=== PATIENT | male | born 1980 | race Caucasian/White ===

== ENCOUNTER 2018-06-01 09:27 | Outpatient (CLI) | payer BC ==
[2018-06-01 10:58] LABS: Hemoglobin 15.4 g/dL (14.0-18.0); Mean Corpuscular HGB CONC 34.2 g/dL (32.0-36.0); Mean Corpuscular Volume 96.4 fL (78.0-98.0); Mean Platelet Volume 8.8 fL (7.4-10.4); Platelet Count 192 thou/uL (130-400); RBC Distribution Width 12.2 % (11.5-14.5); Red Blood Cell (RBC) Count 4.68 mill/uL (4.70-6.10); White Blood Cell (WBC) Count 7.7 thou/uL (4.8-10.8)
[2018-06-01 11:23] LABS: Anion Gap 16 mmol/L (10-20); BUN (Urea Nitrogen) 14 mg/dL (8.9-20.6); Calc. Creatinine Clearance 0 mL/min (70-130); Calcium 9.6 mg/dL (7.8-10.44); Carbon Dioxide 23 mmol/L (22-29); Chloride 106 mmol/L (98-107); Estimated GFR-MDRD 77; Glucose 105 mg/dL (70-105); Potassium 3.9 mmol/L (3.5-5.1); Sodium 141 mmol/L (136-145)
== END 2018-06-01 09:28 | disposition home or self-care (01) ==
LOC: LABBT 09:27
PROVIDERS: ATTEND Neurological Surgery
DX: Z01.818 Encounter for other preprocedural examination (principal); M54.12 Radiculopathy, cervical region
CPT/HCPCS: 80048; 85027; 93005; 93010

== ENCOUNTER 2018-06-05 05:55 | Observation (INO) | payer BC ==
[2018-06-05] MEDS ORDERED: Sodium Chloride 0.9% 10 ML ONE (06:24)
[2018-06-05] MEDS ORDERED: CEFAZOLIN 2 GM/50 ML BAG ONE (07:08)
[2018-06-05] MEDS ORDERED: Fentanyl 100 MCG/2 ML VIAL ONE ×2 (07:21→09:29)
[2018-06-05] MEDS ORDERED: Midazolam HCl 2 mg/2 ml Vial ONE (07:28)
[2018-06-05] MEDS ORDERED: Albuterol Sulfate HFA (OR ONLY) ONE (07:45)
[2018-06-05] MEDS ORDERED: HYDROmorphone 0.5 MG/0.5 ML SYRINGE ONE (07:55)
[2018-06-05] MEDS ORDERED: Promethazine HCl 25 MG/ML VIAL IM PRN ×2 (09:01→09:12)
[2018-06-05] MEDS ORDERED: Promethazine HCl 25 MG/ML VIAL SLOW IVP PRN (09:01)
[2018-06-05] MEDS ORDERED: Meperidine HCl/PF 25 MG/ML VIAL SLOW IVP PRN (09:01)
[2018-06-05] MEDS ORDERED: HYDROmorphone 2 MG/ML VIAL SLOW IVP PRN (09:01)
[2018-06-05] MEDS ORDERED: diphenhydrAMINE 50 MG/ML VIAL IVP PRN (09:12)
[2018-06-05] MEDS ORDERED: Promethazine HCl 12.5 MG SUPP PR PRN (09:12)
[2018-06-05] MEDS ORDERED: Mag-Al 1200 mg/1200 mg/30 ML UDCUP PO PRN (09:12)
[2018-06-05] MEDS ORDERED: traMADol HCl 50 MG TAB PO PRN (09:12)
[2018-06-05] MEDS ORDERED: Milk Of Magnesia 30 ML UDCUP PO PRN (09:12)
[2018-06-05] MEDS ORDERED: Morphine 4 MG/ML VIAL SLOW IVP PRN (09:12)
[2018-06-05] MEDS ORDERED: diphenhydrAMINE 25 MG CAP PO PRN (09:12)
[2018-06-05] MEDS ORDERED: HYDROcodone/Acetaminophen 10/325 mg Tablet PO PRN (09:12)
[2018-06-05] MEDS ORDERED: Promethazine 25 MG TAB PO PRN (09:12)
[2018-06-05] MEDS ORDERED: Ondansetron PF 4 MG/2 ML Vial IVP PRN (09:14)
[2018-06-05] MEDS: HYDROcodone/Acetaminophen 10/325 mg Tablet PO PRN ×2 (11:18→15:41)
[2018-06-05] MEDS: Sodium Chloride 0.9% 1,000 ML IV SCH ×2 (11:25→22:28)
[2018-06-05 11:27] VITALS: BMI 40.6
[2018-06-05] MEDS: CEFAZOLIN 2 GM/50 ML-DEXTROSE 2 GM in Premix Bag 1 BAG IVPB SCH ×2 (14:00→21:44)
--- NOTE | 2018-06-05 14:16 | OP ---
DATE OF PROCEDURE: 06/05/2018 SURGEON: Art Pereira M.D. TRACK LAYING SUPERVISOR: . PROCEDURE: Anterior cervical diskectomy C5-6 and C6-7, interbody arthrodesis, intravertebral biomech anical device, local morselized autograft, demineralized bone matrix, anterior titanium instrumentati on C5 through C7. PROCEDURE IN DETAIL: The patient was brought to the operating room and intubated. He positioned sup ine, head in modest extension on a gel-filled donut. Incision was made in the right precervical area . The exposure and the surgery were extremely difficult given his very large body habitus and extrem dominique muscular neck. Retraction was very difficult. We did ultimately dissecting medial to the sterno cleidomastoid muscle and access the anterior cervical spine. The retractor blades were not quite johnny g enough for adequate exposure and using a combination of hand held retraction and suction retraction . We ultimately were able to access the C5-6 and C6-7 disk spaces, which were confirmed by x-ray. D istraction was placed across the disk spaces. The disks were incised and debrided. A complete decom pression was achieved. The bony endplates were then decorticated for the purpose of arthrodesis and appropriately sized intravertebral biomechanical PEEK device was brought into the field, filled with demineralized bone matrix and local morselized autograft, and tapped into place securely at C5-6 and C6-7. Next, an anterior plate was brought in the field and secured to C5, C6, and C7 using two 14 mm screws at each level. The wound was extensively irrigated, immaculate hemostasis was secured, and t he wound was closed in anatomic layers over a drain.
[2018-06-05] MEDS ORDERED: Ondansetron PF 4 MG/2 ML Vial ONE (17:33)
[2018-06-05] MEDS ORDERED: Lidocaine 1% PF 5 ML VIAL ONE (17:33)
[2018-06-05] MEDS ORDERED: PROVENTIL INHALER 6.7 G (200 INHALATIONS) ONE (17:33)
[2018-06-05] MEDS ORDERED: PHENYLEPHRINE-NS 100 MCG/ML 10 ML SYRINGE ONE (17:33)
[2018-06-05] MEDS ORDERED: Glycopyrrolate 0.2 MG/ML 5 ML SYRINGE ONE (17:33)
[2018-06-05] MEDS ORDERED: PROPOFOL 200 MG/20 ML VIAL ONE (17:33)
[2018-06-05] MEDS ORDERED: Ketorolac Tromethamine 30 MG/ML VIAL ONE (17:33)
[2018-06-05] MEDS ORDERED: Metoprolol Tartrate 5 MG/5 ML VIAL ONE (17:33)
[2018-06-05] MEDS ORDERED: Dexamethasone 20 MG/5 ML VIAL ONE (17:33)
[2018-06-05] MEDS ORDERED: Esmolol 100 MG/10 ML VIAL ONE (17:33)
[2018-06-05] MEDS ORDERED: Metoclopramide HCl 10 MG/2 ML VIAL ONE (17:33)
[2018-06-05] MEDS: tiZANidine HCl 4 MG TAB PO PRN (22:15)
[2018-06-05] MEDS: traMADol HCl 50 MG TAB PO PRN (22:15)
[2018-06-06] MEDS: HYDROcodone/Acetaminophen 10/325 mg Tablet PO PRN ×2 (03:39→08:05)
[2018-06-06] MEDS: traMADol HCl 50 MG TAB PO PRN (04:44)
[2018-06-06] MEDS: CEFAZOLIN 2 GM/50 ML-DEXTROSE 2 GM in Premix Bag 1 BAG IVPB SCH (05:30)
--- NOTE | 2018-06-06 07:24 | DIS ---
DATE OF ADMISSION: 06/05/2018 DATE OF DISCHARGE: 06/06/2018 ATTENDING PHYSICIAN: Dr. Art Pereira HOSPITAL COURSE: The patient is a 38-year-old male status post C5-C7 ACDF for cervical deg enerative disk disease and cervical radiculopathy. Postoperatively, he was admitted to the hospital where pain was well controlled with p.o. medications, he was tolerating regular diet, and voiding shari ropriately. SERINA drain was placed intraoperatively, but it had minimal output, only 22 mL overnight. This was removed the following morning. I am visiting the patient in the room this morning. He has no complaints. He reports he is very comfortable and ready to go home. He is sitting in his chair comfortably. He has free active range of motion of all extremities. His dressing is dry and an incision is intact. He has no focal neurologic deficits on my exam. He has a steady gait. We will plan to dismiss the patient to home. I have discussed home care precautions. We will follow up with the patient in 2 weeks with repeat x-rays at that time. The patient has been provided with scripts for hydrocodone, tramadol, Zanaflex. Please reach out to Neurosurgery for additional questio ns or concerns.
[2018-06-06 07:54] VITALS: BP 160/80; TEMP 97.5
[2018-06-06] MEDS: tiZANidine HCl 4 MG TAB PO PRN (08:05)
== END 2018-06-06 08:00 | disposition home or self-care (01) ==
LOC: SDC 05:55 → ONC 07:00 → UNDOADMOB 07:00 → SDC 06-06 08:08 → UNDODISOB 06-06 08:08
PROVIDERS: ADMIT Neurological Surgery; ATTEND Neurological Surgery
PROC: 0RT30ZZ Resection of Cervical Vertebral Disc, Open Approach (ICD-10-PCS; principal; 2018-06-05)
PROC: 0RG20A0 Fusion of 2 or more Cervical Vertebral Joints with Interbody Fusion Device, Anterior Approach, Anterior Column, Open Approach (ICD-10-PCS; principal; 2018-06-05)
DX: M50.122 Cervical disc disorder at C5-C6 level with radiculopathy (principal); I10 Essential (primary) hypertension; F17.210 Nicotine dependence, cigarettes, uncomplicated; E78.00 Pure hypercholesterolemia, unspecified; Z79.899 Other long term (current) drug therapy
CPT/HCPCS: 76001; 90471; 90686; 96365; 96366; 96374; C1713; C1776; G0008; G0378; J0131; J1100; J1170; J1885; J2001; J2250; J2405; J2704; J2765; J3010; J3490

== ENCOUNTER 2018-06-21 15:24 | Outpatient (CLI) | payer OTHER ==
--- NOTE | 2018-06-21 16:09 | RAD ---
CERVICAL SPINE 4 VIEWS: Date: 06/21/18 HISTORY: Neck pain. Surgical follow-up. FINDINGS: Changes of anterior fusion procedure note. Anterior plate and screws transfix C5, C6, and C7, with in terbody implants. Hardware and implants appear adequately position. Posterior alignment is maintained . IMPRESSION: Postoperative changes as noted. POS: [facility]
== END 2018-06-21 15:25 | disposition home or self-care (01) ==
LOC: TBSIIMAG 15:24
PROVIDERS: ATTEND Neurological Surgery
DX: S13.9XXA Sprain of joints and ligaments of unspecified parts of neck, initial encounter (principal); Z98.890 Other specified postprocedural states
CPT/HCPCS: 72040

== ENCOUNTER 2018-08-08 14:25 | Outpatient (CLI) | payer OTHER ==
--- NOTE | 2018-08-08 16:13 | RAD ---
FOUR VIEWS CERVICAL SPINE: History: Follow up surgery. Spondylosis with myelopathy. FINDINGS: AP, lateral, open mouth odontoid and swimmer's view cervical spine demonstrates ACDF with fusion of t he C5, C6, and C7 vertebra using plate and screws. Intervertebral disc space hardware in place. No ev idence of acute fractures seen. ACDF plates and screws are unchanged in position since the previous c omparison since 06-21-18. IMPRESSION: ACDF with fusion of the C5-6-7 vertebral using anterior plates and screws. No other acute abnormaliti es seen. POS: [facility]
== END 2018-08-08 14:26 | disposition home or self-care (01) ==
LOC: TBSIIMAG 14:25
PROVIDERS: ATTEND Neurological Surgery
DX: M50.30 Other cervical disc degeneration, unspecified cervical region (principal); Z98.1 Arthrodesis status
CPT/HCPCS: 72040

== ENCOUNTER 2019-02-12 22:13 | Emergency (ER) | payer BC, SELFPAY | END 2019-02-12 23:00 | disposition home or self-care (01) | LOC: ERS 22:13 | DX: M25.511 Pain in right shoulder (principal); I10 Essential (primary) hypertension; F17.210 Nicotine dependence, cigarettes, uncomplicated; Z79.899 Other long term (current) drug therapy | CPT/HCPCS: 99283 ==

== ENCOUNTER 2023-07-23 22:21 | Emergency (ER) | payer SELFPAY ==
[2023-07-23 23:15] LABS: #Basophils 0.1 thou/uL (0.0-0.2); #Eosinphils 0.4 thou/uL (0.0-0.7); #Monocytes 0.7 thou/uL (0.11-0.59); #Neutrophils 5.1 thou/uL (1.40-6.50); %Basophils 0.8 % (0.0-1.0); %Eosinophils 4.3 % (0.0-10.0); %Lymphocytes 32.2 % (21.0-51.0); %Monocytes 7.3 % (0.0-10.0); %Neutrophils 54.9 % (42.0-75.0); Hematocrit 43.6 % (42.0-52.0); Hemoglobin 14.6 g/dL (14.0-18.0); Mean Corpuscular HGB CONC 33.5 g/dL (32.0-36.0); Mean Corpuscular Volume 95.6 fl (78.0-98.0); Mean Platelet Volume 10.1 fL (7.4-10.4); Platelet Count 232 10x3/uL (130-400); RBC Distribution Width 12.4 % (11.5-14.5); Red Blood Cell (RBC) Count 4.56 mill/uL (4.70-6.10); White Blood Cell (WBC) Count 9.3 10x3/uL (4.8-10.8)
[2023-07-23 23:42] LABS: ALT (SGPT) 19 U/L (8-55); AST (SGOT) 16 U/L (5-34); Albumin 4.3 g/dL (3.5-5.0); Alkaline Phosphatase 62 U/L (40-110); Anion Gap 15 mmol/L (10-20); BUN (Urea Nitrogen) 13 mg/dL (8.9-20.6); Bilirubin, Total 0.3 mg/dL (0.2-1.2); Calc. Creatinine Clearance 0 mL/min (70-130); Calcium 9.4 mg/dL (7.8-10.44); Carbon Dioxide 28 mmol/L (22-29); Chloride 105 mmol/L (98-107); Estimated GFR 79; Globulin 2.3 g/dL (2.4-3.5); Glucose 134 mg/dL (70-105); Potassium 4.4 mmol/L (3.5-5.1); Protein, Total 6.6 g/dL (6.0-8.3); Sodium 144 mmol/L (136-145)
[2023-07-23] MEDS ORDERED: Benzonatate 100 MG CAP ONE (23:43)
[2023-07-23] MEDS ORDERED: methylPREDNISolone Sod Succ/PF 125 MG/2 ML VIAL ONE (23:43)
[2023-07-23 23:44] LABS: Troponin I Less than 0.010 ng/mL (< 0.028)
[2023-07-23] MEDS ORDERED: Ipratropium/Albuterol 3 ML NEB ONE (23:48)
[2023-07-24 00:14] LABS: Magnesium 1.8 mg/dL (1.6-2.6)
[2023-07-24 00:15] LABS: Lipase 26 U/L (8-78)
[2023-07-24 01:45] LABS: SARS-CoV-2 NAA Rapid Test Not Detected (NotDetected)
[2023-07-24] MEDS ORDERED: Iopamidol 370 76% 100 ML VIAL ONE (09:25)
== END 2023-07-24 01:43 | disposition home or self-care (01) ==
LOC: ERS 22:21
DX: J21.9 Acute bronchiolitis, unspecified (principal); I10 Essential (primary) hypertension; F17.210 Nicotine dependence, cigarettes, uncomplicated; Z79.899 Other long term (current) drug therapy
CPT/HCPCS: 36415; 71045; 71275; 80053; 83690; 83735; 83880; 84484; 85025; 85379; 93005; 94640; 96374; J2930; J7620; Q9967

== ENCOUNTER 2024-08-20 16:29 | Emergency (ER) | payer OTHER, SELFPAY ==
[2024-08-20] MEDS ORDERED: predniSONE 20 MG TAB ONE (18:18)
[2024-08-20 18:48] LABS: #Basophils 0.05 10x3/uL (0.0-0.2); %Basophils 0.7 % (0.0-1.0); %Eosinophils 5.5 % (0.0-10.0); %Lymphocytes 42.4 % (21.0-51.0); %Monocytes 7.2 % (0.0-10.0); %Neutrophils 43.9 % (42.0-75.0); Hematocrit 46.7 % (42.0-52.0); Hemoglobin 16.6 g/dL (14.0-18.0); Mean Corpuscular HGB CONC 35.5 g/dL (32.0-36.0); Mean Corpuscular Hemoglobin 32.1 pg (27.0-31.0); Mean Corpuscular Volume 90.3 fL (78.0-98.0); Platelet Count 170 10x3/uL (130-400); RBC Distribution Width 13.1 % (11.5-14.5); Red Blood Cell (RBC) Count 5.17 mill/uL (4.70-6.10)
[2024-08-20 19:10] LABS: ALT (SGPT) 50 U/L (8-55); AST (SGOT) 115 U/L (5-34); Albumin 4.2 g/dL (3.5-5.0); Alkaline Phosphatase 43 U/L (40-110); Anion Gap 12 mmol/L (10-20); BUN (Urea Nitrogen) 12 mg/dL (8.9-20.6); Bilirubin, Total 0.3 mg/dL (0.2-1.2); Calc. Creatinine Clearance 0 mL/min (70-130); Calcium 10.1 mg/dL (7.8-10.44); Carbon Dioxide 28 mmol/L (22-29); Chloride 103 mmol/L (98-107); Estimated GFR 111; Globulin 3.2 g/dL (2.4-3.5); Glucose 135 mg/dL (70-105); Potassium 3.3 mmol/L (3.5-5.1); Protein, Total 7.4 g/dL (6.0-8.3); Sodium 140 mmol/L (136-145)
== END 2024-08-20 20:16 | disposition home or self-care (01) ==
LOC: ERS 16:29
DX: G51.0 Bell's palsy (principal); I10 Essential (primary) hypertension; F17.210 Nicotine dependence, cigarettes, uncomplicated
CPT/HCPCS: 36415; 70450; 80053; 85025; J7512

== ENCOUNTER 2025-05-06 23:32 | Inpatient (IN) | payer OTHER, SELFPAY ==
[2025-05-07] MEDS ORDERED: Acetaminophen 500 MG TAB ONE (00:06)
[2025-05-07 00:11] LABS: #Basophils 0.08 10x3/uL (0.0-0.2); #Eosinophils 0.30 10x3/uL (0.0-0.7); #Monocytes 0.91 10x3/uL (0.11-0.59); #Neutrophils 8.86 10x3/uL (1.40-6.50); %Basophils 0.7 % (0.0-1.0); %Eosinophils 2.5 % (0.0-10.0); %Lymphocytes 14.2 % (21.0-51.0); %Monocytes 7.7 % (0.0-10.0); %Neutrophils 74.6 % (42.0-75.0); Hematocrit 45.4 % (42.0-52.0); Hemoglobin 15.0 g/dL (14.0-18.0); Mean Corpuscular Hemoglobin 31.3 pg (27.0-31.0); Mean Corpuscular Volume 94.8 fL (78.0-98.0); Platelet Count 181 10x3/uL (130-400); Red Blood Cell (RBC) Count 4.79 mill/uL (4.70-6.10); White Blood Cell (WBC) Count 11.88 10x3/uL (4.8-10.8)
[2025-05-07 00:20] LABS: Actual Bicarbonate (HCO3v) 27.4 mEq/L (22-28); Base Excess 2.8 mEq/L (-2.0 to +3.0); Calcium, Ionized (venous) 1.14 mmol/L (1.16-1.32); Chloride (VBG) 99 mmol/L (98-106); Hematocrit-VBG 48 % (42.0-52.0); Hemoglobin (Hb) 16.2 g/dL (13.1-17.2); Potassium (VBG) 3.05 mmol/L (3.70-5.30); Sodium 138 mmol/L (133-146)
[2025-05-07] MEDS ORDERED: cefTRIAXone (ROCEPHIN) 2 GM VIAL ONE (00:23)
[2025-05-07 00:31] LABS: ALT (SGPT) 16 U/L (Less than 45); AST (SGOT) 20 U/L (11-34); Albumin 4.1 g/dL (3.1-4.5); Alkaline Phosphatase 55 U/L (40-110); Anion Gap 16 mmol/L (10-20); BUN (Urea Nitrogen) 12 mg/dL (8.9-20.6); Bilirubin, Total 0.3 mg/dL (0.3-1.2); Calc. Creatinine Clearance 0 mL/min (70-130); Calcium 10.2 mg/dL (7.8-10.44); Carbon Dioxide 27 mmol/L (22-29); Chloride 100 mmol/L (98-107); Globulin 3.3 g/dL (2.4-3.5); Glucose 137 mg/dL (70-105); Lipase 18 U/L (8-78); Magnesium 1.4 mg/dL (1.6-2.6); Potassium 3.1 mmol/L (3.5-5.1); Sodium 140 mmol/L (136-145)
[2025-05-07] MEDS ORDERED: Magnesium 2 GM/50 ML BAG (IN WATER) ONE (01:46)
[2025-05-07] MEDS ORDERED: Ondansetron PF 4 MG/2 ML Vial IVP PRN (02:49)
[2025-05-07] MEDS ORDERED: Melatonin 3 MG TAB PO PRN (02:49)
[2025-05-07] MEDS ORDERED: Senokot S 8.6-50 MG TAB PO PRN (02:49)
[2025-05-07] MEDS ORDERED: Calcium Carbonate 500 MG ChewTAB PO PRN (02:49)
[2025-05-07] MEDS ORDERED: Electrolyte Replacement Protocol 1 EACH FS SCH (03:00)
[2025-05-07 05:30] VITALS: BMI 36.8
[2025-05-07 05:41] LABS: #Basophils 0.07 10x3/uL (0.0-0.2); #Eosinophils 0.25 10x3/uL (0.0-0.7); #Monocytes 0.87 10x3/uL (0.11-0.59); #Neutrophils 7.82 10x3/uL (1.40-6.50); %Basophils 0.6 % (0.0-1.0); %Eosinophils 2.2 % (0.0-10.0); %Lymphocytes 19.7 % (21.0-51.0); %Monocytes 7.7 % (0.0-10.0); %Neutrophils 69.5 % (42.0-75.0); Hematocrit 40.8 % (42.0-52.0); Hemoglobin 13.5 g/dL (14.0-18.0); Mean Corpuscular Hemoglobin 31.6 pg (27.0-31.0); Mean Corpuscular Volume 95.6 fL (78.0-98.0); Platelet Count 175 10x3/uL (130-400); Red Blood Cell (RBC) Count 4.27 mill/uL (4.70-6.10); White Blood Cell (WBC) Count 11.26 10x3/uL (4.8-10.8)
[2025-05-07 05:58] LABS: Anion Gap 14 mmol/L (10-20); BUN (Urea Nitrogen) 10 mg/dL (8.9-20.6); Calc. Creatinine Clearance 195 mL/min (70-130); Calcium 9.3 mg/dL (7.8-10.44); Carbon Dioxide 25 mmol/L (22-29); Chloride 102 mmol/L (98-107); Glucose 111 mg/dL (70-105); Potassium 3.0 mmol/L (3.5-5.1); Sodium 138 mmol/L (136-145)
[2025-05-07 07:20] LABS: Potassium 3.4 mmol/L (3.5-5.1)
[2025-05-07] MEDS ORDERED: Losartan 25 MG TAB PO SCH (09:00)
[2025-05-07] MEDS: Azithromycin 250 MG TAB PO SCH (10:04)
[2025-05-07] MEDS: Magnesium 2 GM/50 ML(in water) 2 GM in Premix 1 BAG IVPB SCH (10:05)
[2025-05-07] MEDS: Enoxaparin 40 MG (0.4 mL) SYRINGE SC SCH (10:06)
[2025-05-07] MEDS: FLU (Fluarix Triv) 25-26 (6MOS UP)/PF 45 MCG/0.5 ML Syringe IM ONE (10:06)
[2025-05-07] MEDS: HYDROcodone/Acetaminophen 10/325 mg Tablet PO PRN (10:14)
[2025-05-07 12:37] LABS: Legionella Urinary Ag Negative (Negative); Strep pneumo Urine Ag NEGATIVE (NEGATIVE)
[2025-05-07] MEDS ORDERED: Iopamidol-370 76% 500 ML MDV (1 ML CHARGE) ONE (12:42)
[2025-05-07] MEDS: Rosuvastatin 10 MG TAB PO SCH (20:47)
[2025-05-07] MEDS: cefTRIAXone\\ROCEPHIN 1 GM in Sodium Chloride 0.9% 100 ML IVPB SCH (23:31)
[2025-05-08] MEDS: Acetaminophen 325 MG TAB PO PRN (04:04)
[2025-05-08 10:30] LABS: #Basophils 0.05 10x3/uL (0.0-0.2); #Eosinophils 0.19 10x3/uL (0.0-0.7); #Monocytes 0.63 10x3/uL (0.11-0.59); #Neutrophils 7.13 10x3/uL (1.40-6.50); %Basophils 0.5 % (0.0-1.0); %Eosinophils 2.0 % (0.0-10.0); %Lymphocytes 14.2 % (21.0-51.0); %Monocytes 6.7 % (0.0-10.0); %Neutrophils 75.9 % (42.0-75.0); Hematocrit 42.7 % (42.0-52.0); Hemoglobin 14.0 g/dL (14.0-18.0); Mean Corpuscular Hemoglobin 31.3 pg (27.0-31.0); Mean Corpuscular Volume 95.3 fL (78.0-98.0); Platelet Count 187 10x3/uL (130-400); Red Blood Cell (RBC) Count 4.48 mill/uL (4.70-6.10); White Blood Cell (WBC) Count 9.41 10x3/uL (4.8-10.8)
[2025-05-08 10:50] LABS: Anion Gap 18 mmol/L (10-20); BUN (Urea Nitrogen) 10 mg/dL (8.9-20.6); Calc. Creatinine Clearance 173 mL/min (70-130); Calcium 9.6 mg/dL (7.8-10.44); Carbon Dioxide 24 mmol/L (22-29); Chloride 104 mmol/L (98-107); Glucose 123 mg/dL (70-105); Potassium 3.9 mmol/L (3.5-5.1); Sodium 142 mmol/L (136-145)
[2025-05-08 12:21] VITALS: BP 134/81; TEMP 98.3
== END 2025-05-08 14:01 | disposition home or self-care (01) | DRG 871 ==
LOC: ERS 23:32 → 2SE 05-07 02:52
PROVIDERS: ADMIT Internal Medicine; ATTEND Internal Medicine
DX: A41.9 Sepsis, unspecified organism (principal); J18.9 Pneumonia, unspecified organism; J96.01 Acute respiratory failure with hypoxia; I10 Essential (primary) hypertension; E78.5 Hyperlipidemia, unspecified; F17.210 Nicotine dependence, cigarettes, uncomplicated; R65.20 Severe sepsis without septic shock; E87.6 Hypokalemia; E83.42 Hypomagnesemia; Z79.899 Other long term (current) drug therapy; Z98.890 Other specified postprocedural states
CPT/HCPCS: 36415; 71275; 80048; 80053; 82805; 83605; 83690; 83735; 84145; 84484; 85025; 87040; 87070; 87205; 87428; 87449; 87899; 93005; 96374; 96375; J0696; J1650; J3475; J7614; Q9967